=== PATIENT | male | born 1960 | race Caucasian/White ===

== ENCOUNTER 2017-04-19 16:13 | Inpatient (IN) | payer OTHER ==
[~2017-04-19] VITALS: Ht 180.3 cm; Wt 114.5 kg
--- NOTE | ~2017-04-19 | OR ---
ADMIT: 04/21/2017 RM/LOC: 518 [facility] MR#: [id number] [address] [address] ERIC VELASCO [address] [place] [address] Operative/Delivery Room Report SEX: M AGE: 56 : 1960 SURGERY DATE: 04/21/2017 SURGEON: Jake Pino MD PREOPERATIVE DIAGNOSIS: Posterior scalp abscess. POSTOPERATIVE DIAGNOSIS: A 5 cm posterior scalp abscess. PROCEDURE PERFORMED: Incision and drainage of 5 cm posterior scalp abscess. ANESTHESIA: Local. ESTIMATED BLOOD LOSS: Less than 5 mL. DESCRIPTION OF PROCEDURE: The patient was left in his hospital bed. His posterior scalp was prepped and draped in sterile fashion directly over this area of fluctuance and his posterior scalp. A 20 mL of 1% lidocaine with epinephrine was injected in the skin and deep tissues. A cruciate incision was then created over the most fluctuant area of this abscess. I did get some pus and purulence to come out. A culturette swab was used to take a sample of this and sent for aerobic anaerobic cultures and Gram stain. The wound was then probed, there was a small pocket just up to the right side that I was able to break into and got a little bit more pus out of, but otherwise I felt that I had things adequately drained. A bulky gauze dressing was then applied. Patient tolerated the procedure well and was left in his hospital bed in stable condition. Jake Pino MD/ emily JOB #: [id number] CC: Edvin Campbell, Attending Physician Edvin Campbell, Family Physician Edvin Campbell MD
--- NOTE | ~2017-04-19 | HP ---
ADMIT: 04/19/2017 RM/LOC: 518 [facility] MR#: [id number] [address] [address] MATT VELASCO [address] [place] [address] History and Physical SEX: M AGE: 56 : 1960 DATE OF SERVICE: 04/20/2017 CHIEF COMPLAINT: Occipital pain, fever. HISTORY OF PRESENT ILLNESS: Matt is a very pleasant, 56-year-old, white male, who presented to the [facility] late on 04/19/2017 with approximately 1 week of progressively worsening pain and swelling as well as fever and headache located in the occipital region of his scalp. He notes that the pain all started with what he thought was a pimple or an ingrown hair which he was unable to express himself. He was treating this with hydrogen peroxide, ice packs, and heating packs without any relief, and despite these treatments the pain, redness, and warmth continued to expand. He went to his primary care provider over the [facility] yesterday and upon being seen and was advised that he needed to be probably admitted to the hospital for IV antibiotics and thus was sent to the emergency room. He is a city-call patient. PAST MEDICAL HISTORY: Remarkable for; 1. Hypertension. 2. Gastroesophageal reflux disease. 3. Subclinical depression. He is currently receiving some counseling, but not on any pharmacotherapy for depression. PAST SURGICAL HISTORY: He reports a history of a staph infection arising as a dental abscess back in the early , requiring a surgery, but otherwise no major surgeries outside of this. ALLERGIES: HE IS ALLERGIC TO MORPHINE AND VICKS. MORPHINE CAUSES SOME NAUSEA. MEDICATIONS: He reports being on a blood pressure medicine and possibly some Zantac, but we have yet to clarify those two medications with him. SOCIAL HISTORY: He is presently a nonsmoker. Prior to that, he was smoking 30+ years or about a pack to pack and half per day. He quit about 8 years ago. He denies any significant alcohol and no recreational drug use. 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 FAMILY HISTORY: Remarkable for hypertension, diabetes, and stroke in his father. His mother suffered from depression. He reports no other significant family history of medical problems. REVIEW OF SYSTEMS: As per HPI. All others reviewed and were negative. PHYSICAL EXAMINATION: VITAL SIGNS: He has been febrile in the overnight period since admission with temps as high as 102.8, current temp is 100.6; blood pressure is 133/66; pulse 107; respirations 16; O2 saturation is 98% on room air. GENERAL: He is awake, alert, sitting upright in the bedside chair. He is ADMIT: 04/19/2017 RM/LOC: 518 [facility] MR#: [id number] [address] [place] [id number] MATT VELASCO [address] [place] [address] History and Physical SEX: M AGE: 56 : 1960 uncomfortable appearing, but not in any acute distress. HEENT: He has a large area of redness and induration located along the occipital region of his scalp and upper cervical spine, overlying this is a kind of a yellow eschar with a couple of what appeared to be pustular areas around this, and this is concerning for cellulitis and possibly a subcutaneous abscess. NECK: Supple. No lymphadenopathy. HEART: Regular rate and rhythm. No murmurs, gallops, or rubs. LUNGS: Clear to auscultation bilaterally. ABDOMEN: Obese, soft, nondistended. He has a fairly large and tender umbilical hernia identified on exam. EXTREMITIES: No cyanosis, clubbing, or edema. LABORATORY AND X-RAY DATA: CBC this morning shows an elevated white count of 18,300, and platelet count 195, a hemoglobin of 13.5, hematocrit 39.9. BMP remarkable only for potassium of 3.4. The remainder of his BMP is without clinically significant abnormalities. UA done through the Emergency Department on admission was without clinically significant abnormalities. A procalcitonin and lactic acid were both negative. Chest x-ray did not show any acute cardiopulmonary process. A CT of his neck, showed findings consistent with a soft tissue cellulitis in the right posterior occipital region, but no discrete drainable abscess identified. Blood cultures at this time 2 of 2 are negative. ASSESSMENT: 1. Occipital cellulitis with possible subcutaneous abscess. 2. Tender umbilical hernia, non-likely contributing at this time. 3. Hypertension. 4. Gastroesophageal reflux disease. 5. Subclinical depression. ADMIT: 04/19/2017 RM/LOC: 518 [facility] MR#: [id number] [address] [address] RODBERNARDOZuri [facility] [place] [address] History and Physical SEX: M AGE: 56 : 1960 6. Hypokalemia. PLAN: Matt has been started on vancomycin and clindamycin. I recognize that he screens positive for sepsis. We have a source for this. He is on appropriate antibiotics. I will ask General Surgery to look at the occipital area to determine if there is anything that they feel would be drainable there. I will go ahead and bolus him with 1 L of saline and then run saline at 70 mL an hour. We will replace his potassium with 40 mEq orally x1. I am also going to ask General Surgery to examine his umbilical hernia. This may be need to be repaired sometime in the future, but at this time I do not think it is emergent. Further management will be dependent on Matt's clinical course. Edvin Campbell MD/ emily JOB #: [id number] CC: Edvin Campbell, Attending Physician Edvin Campbell, Family Physician
--- NOTE | 2017-04-21 02:42 | ER ---
ADMIT: 04/19/2017 RM/LOC: 518 [facility] MR#: [id number] [address] [address] ERIC VELASCO [address] [place] [address] Emergency Room Report SEX: M AGE: 56 : 1960 DATE: 04/19/2017 TIME: 1613 hours. Please refer to my T-sheet for complete H and P. Briefly, the patient is a 56-year-old, who comes in with neck pain, swelling, and redness. It is getting worse. He has had fevers and chills. It has been there for a couple days. PHYSICAL EXAMINATION: VITAL SIGNS: He is afebrile here. They are stable. HEENT: He has severe induration, tenderness to the whole posterior occipital region all the way down to his shoulders and his neck. No obvious abscess. LUNGS: Clear. HEART: Regular. ABDOMEN: Soft. EMERGENCY DEPARTMENT COURSE: CT scan revealed no evidence of abscess. His CBC was normal except for white count of 16.2. Chemistries normal except potassium of 3.6. Cardiac enzymes all normal. His lactate was 1. Blood cultures x2 were sent. His coags are normal. EKG was sinus rhythm, no changes. He was started on antibiotics after blood cultures. I talked to Dr. Campbell, he will admit to the hospital. ASSESSMENT: Neck cellulitis significant in nature with fevers and chills. No elevated white count. PLAN: Admit to the hospital. Juan Pablo Jack MD/ emily JOB #: [id number] CC: Edvin Campbell MD, Attending Physician Edvin Campbell MD, Family Physician
[2017-04-26] MEDS ORDERED: ZANTAC DPS150 MG PO (06:04)
[2017-04-26] MEDS ORDERED: DAILY MULTIPLE1 EAC1 PO (06:04)
[2017-04-26] MEDS ORDERED: OMEGA-3 DPS1000 MG PO (06:05)
[2017-04-26] MEDS ORDERED: ASPIRIN EC81 MG PO (06:05)
[2017-04-26] MEDS ORDERED: AMLODIPINE BESYL5 MG PO (06:05)
[2017-04-26] MEDS ORDERED: CO Q-1010 MG PO (06:06)
[2017-04-26] MEDS ORDERED: CLINDAMYCIN HC300 MG PO (06:06)
[2017-04-26] MEDS ORDERED: HYZAAR 100-251 EACH PO (06:06)
[2017-04-26] MEDS ORDERED: BACTRIM DS TAB1 EACH PO (06:07)
--- NOTE | 2017-04-28 08:46 | DS ---
ADMIT: 04/21/2017 RM/LOC: 518 [facility] MR#: [id number] [address] [address] MATT VELASCO [address] [place] [address] Discharge Summary SEX: M AGE: 56 : 1960 ADMISSION DATE: 04/21/2017 DISCHARGE DATE: 04/24/2017 ADMITTING DIAGNOSES: 1. Occipital cellulitis or possible subcutaneous abscess. 2. Tender umbilical hernia, noncontributory. 3. Hypertension. 4. Gastroesophageal reflux disease. 5. Subclinical depression. DISCHARGE DIAGNOSES: 1. Occipital cellulitis and MRSA (methicillin-resistant Staphylococcus aureus) abscess, sensitivities indicate this is sensitive to clindamycin and Bactrim. 2. Tender umbilical hernia, noncontributory at this time. 3. Hypertension, poorly controlled. 4. Gastroesophageal reflux disease. 5. Subclinical depression. CONSULTATIONS: Jake Pino MD, general surgery, consulted on 04/20/2017. PROCEDURES: Bedside irrigation, incision and drainage of 5 cm posterior scalp abscess performed on 04/21/2017. HISTORY AND PHYSICAL EXAM: Matt is a pleasant 56-year-old, white male, who presented to the [facility] Emergency Department late in the evening on 05/09/2017 with approximately 1 week of progressively worsening pain, swelling and redness on his posterior scalp and occipital region which was accompanied by fever and headache. He noted that it all started with what he thought was a pimple or an ingrown hair in the occipital portion of his scalp which he was unable to express himself. He had been treating this with hydrogen peroxide, ice packs and heating pads without any relief. He went to his primary care provider over at [facility] and had this looked at and was advised he probably need to be admitted to the hospital for IV antibiotics and was sent through the emergency room. He was admitted as a City Call patient by myself. On his initial exam, he was febrile with temps as high as 102.8. Blood pressure was stable. His heart rate was 107, respirations 16. He was awake and alert but uncomfortable appearing. He has a very large 10-12 cm area along his posterior scalp and occipital region of brawny induration, erythema and warmth, consistent with cellulitis. There were no palpable areas of fluctuance. There was a yellow eschar with what appeared to be a couple pustular areas around this which was concerning for the possibility of subcutaneous abscess. [place] [address]. Remainder of his labs were unremarkable. Lactic acid and Procalcitonin level were both negative. Chest x-ray was unremarkable. CT scan of his neck did not show any identifiable fluid collections, just a significant extensive cellulitis in his occipital region. Blood cultures remain two of two negative. He was admitted to the hospital and started on IV vancomycin and clindamycin and a General Surgery consult obtained. ADMIT: 04/21/2017 RM/LOC: 518 [facility] MR#: [id number] [address] [address] MATT VELASCO [address] [place] [address] Discharge Summary SEX: M AGE: 56 : 1960 HOSPITAL COURSE: The patient was seen by Dr. Pino in consultation for general surgical evaluation. A decision was made to begin hot packs and warm compresses to the area and on 04/21/2017 a small identifiable fluid collection was identified and a bedside I and D performed by Dr. Pino. Cultures were obtained of this purulent fluid and came back as MRSA. It was sensitive to Cleocin and vancomycin. He had been started on at admission. It was also sensitive to Bactrim. Over the ensuing several days, he slowly defervesced, his induration improved significantly, the pain improved significantly. By the morning of 04/24/2017, he had remained afebrile for over 24 hours, was tolerating the antibiotics he had been on. The wound was open and actively draining and overall clinically this was improving. A decision was made to discharge him to home with close outpatient followup and oral antibiotics. DISCHARGE CONDITION: Fair. DISPOSITION: He is to be discharged home. DISCHARGE MEDICATIONS: Discharge medication will include: 1. Aspirin 81 mg daily. 2. Coenzyme Q10 200 mg daily. 3. Norvasc 5 mg daily. 4. Fish oil 1000 mg daily. 5. Ranitidine 150 mg b.i.d. 6. Multivitamin daily. 7. Hyzaar 100/25, one tab daily. 8. Bactrim DS 1 tab b.i.d. for 10 days. 9. Clindamycin 300 mg t.i.d. for 10 days. DISCHARGE INSTRUCTIONS: I have asked that the nursing staff make appointments with Dr. Pino's clinic within 2-3 days of discharge and with the [facility] with whom he follows within 2-3 days of discharge as well so that this can be monitored closely for followup. Edvin Campbell MD/ abrilg JOB #: [id number] CC: Edvin Campbell MD, Attending Physician Edvin Campbell MD, Family Physician
--- NOTE | 2017-05-09 07:06 | CO ---
ADMIT: 04/19/2017 RM/LOC: 518 [facility] MR#: [id number] [address] [address] ERIC VELASCO [address] [place] [address] Consultation SEX: M AGE: 56 : 1960 DATE OF CONSULTATION: 04/20/2017 ATTENDING PHYSICIAN: Edvin Campbell CONSULTING PHYSICIAN: Jake Pino MD ADDENDUM: CHIEF COMPLAINT: Scalp abscess. HISTORY OF PRESENT ILLNESS: This is a pleasant patient, who came in through the ER with complaints of redness and pain in his posterior scalp occipital region. He had a CT scan done which shows diffuse edema there, but no obvious drainable abscess or fluid collection. This has been coming on for a few days and has gotten increasingly severe and more painful for him now. On exam, he does have a 10 cm very tight erythematous area directly in the midline of his posterior scalp in the occipital region. A couple small pimples there, but no obvious drainage right now. ASSESSMENT: Possible scalp abscess. PLAN: Because he is so tender even though the CT scan does not really show drainable abscess, I think it is worth doing an I and D. I am going to continue his antibiotics overnight. We will gather the equipment up and then plan on doing this at the bedside tomorrow morning. I went through the risks and benefits of this procedure with the patient. He understands and agrees to proceed. He understands that we may not get any pus out and then to have an incision that would not benefit him, but he is willing to try that in hopes of feeling better. Jake Pino MD/ emily JOB #: [id number] CC: Edvin Campbell, Attending Physician Edvin Campbell, Family Physician
--- NOTE | 2017-05-09 07:06 | CO ---
ADMIT: 04/19/2017 RM/LOC: 518 [facility] MR#: [id number] [address] [address] EIRC VELASCO [address] [place] [address] Consultation SEX: M AGE: 56 : 1960 DATE OF CONSULTATION: 04/20/2017 ATTENDING PHYSICIAN: Edvin Campbell CONSULTING PHYSICIAN: Jake Pino MD REASON FOR CONSULTATION: Occipital cellulitis. HISTORY OF PRESENT ILLNESS: This is a very pleasant 56-year-old male, who noticed some increasing neck pain and swelling over the occipital region or the back of his head for about a week. At first, he thought that it was a pimple, but it has been getting progressively worse. He has also noticed a decrease in appetite and some fevers and chills. He denies ever having an abscess before, however, he has had one previous root canal and subsequent right knee septic arthritis, which he believes both were related. Because of his symptoms, he was seen in the Emergency Department and is now been admitted with IV antibiotic therapy. PAST MEDICAL HISTORY: Significant for hypertension, and please see HPI. PAST SURGICAL HISTORY: I and D of right knee. ALLERGIES: VICKS PRODUCTS, AND HE HAS AN INTOLERANCE TO MORPHINE. MEDICATIONS: Well documented in the chart. FAMILY HISTORY: Noncontributory. SOCIAL HISTORY: The patient is a former tobacco user, but quit 8 years ago. He denies any alcohol or illicit drug use. 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 REVIEW OF SYSTEMS: CONSTITUTIONAL: The patient states some fevers for the last several days. Denies any lightheadedness. RESPIRATORY: He has noticed some occasional shortness of breath upon exertion. ABDOMEN: He has noticed some abdominal pain with distention. Also, he has noticed his umbilicus to protrude consistent with a hernia. It is tender. Denies any bowel issues. The rest of a comprehensive 10-point review of systems was performed and all other systems are negative. PHYSICAL EXAMINATION: GENERAL: The patient is in no acute distress. However, he is ill appearing. HEENT: Head; tender at occipital region with edema and erythema. Exquisite tenderness to palpation. Area of grade swelling noted with healing sore. No followup fluctuance noted to palpation. EOMS are intact. Conjunctivae free of icterus, erythema, or pallor. Pinnae, free of deformities. Nose, midline. No tracheal deviation. NECK: Supple. SKIN: Negative for jaundice, clubbing, edema, pallor, or cyanosis. ADMIT: 04/19/2017 RM/LOC: 518 [facility] MR#: [id number] [address] [address] MAUROBRITBERNARDO MATAZuri [facility] [address] [place] [address] Consultation SEX: M AGE: 56 : 1960 LUNGS: Normal respiratory effort. HEART: Distal pulses intact. Regular rate and rhythm. ABDOMEN: Soft, but distended. Tender at umbilical area and protrusion noted. NEURO: Grossly intact. LABORATORY DATA: White blood cell count elevated at 18. DIAGNOSTIC IMAGING: CT of head and neck revealed occipital cellulitis with no obvious fluid collection. ASSESSMENT: Cellulitis. PLAN: Given that there are no findings of abscess, we will endorse heat packs to the occipital region and continue IV antibiotic therapy. Should the patient not improve from these symptoms, we could offer an I and D of this location, but I would rather sit on him for 24 hours and see how he does. His pain is controlled with Lortab. The patient is in agreement of this plan, had all his questions answered, and would like to proceed. Thanks for the consultation this patient. SUSANNAH Da Silva / Jake Pino MD / emily JOB #: [id number] CC: Edvin Campbell, Attending Physician Edvin Campbell, Family Physician
== END 2017-04-24 18:50 | disposition home or self-care (01) | DRG 603 ==
LOC: ER 16:13 → 5MS 18:50
PROVIDERS: ADMIT Family Medicine
PROC: 0J900ZX Drainage of Scalp Subcutaneous Tissue and Fascia, Open Approach, Diagnostic (ICD-10-PCS; principal; 2017-04-21)
DX: L02.811 Cutaneous abscess of head [any part, except face] (principal); I10 Essential (primary) hypertension; L03.811 Cellulitis of head [any part, except face]; B95.62 Methicillin resistant Staphylococcus aureus infection as the cause of diseases classified elsewhere; E87.6 Hypokalemia; K21.9 Gastro-esophageal reflux disease without esophagitis; K42.9 Umbilical hernia without obstruction or gangrene; F32.9 Major depressive disorder, single episode, unspecified; Z87.891 Personal history of nicotine dependence